=== PATIENT | male | born 1950 | race Caucasian/White ===

== ENCOUNTER 2019-07-02 16:06 | Inpatient (IN) | payer OTHER, MEDICAID ==
[~2019-07-02] VITALS: Ht 170.2 cm; Wt 49.9 kg
--- NOTE | 2019-07-02 19:50 | NUR ---
Opening notes Received patient via gurney. Patient is alert and oriented x1. Patient at first was cooperative, but then began to thrash and attempted to hit staff and self. VSS. Patient legally blind. Patient able to follow simple commands. Oriented patient to room and call light. Patient resting in bed. Safety precautions in place.
--- NOTE | 2019-07-02 20:36 | NUR ---
PAGED PAGED DOCTOR MARKEDIA FOR ORDERS
--- NOTE | 2019-07-02 20:45 | NUR ---
Spoke to Dr. Tamayo Spoke to Dr. Tamayo in regards to admission. Doctor stated he did not want patient to be admitted into the hospital and patient was supposed to go to [facility] to be medically evaluated to be cleared then go to [facility]. merchandise supervisor was informed earlier in the day that patient was going to be a direct admit to the medical surgical unit. Dr. Tamayo refused to have patient admitted and will not come and see the patient, states to just send patient to the ER. Since patient is already on the unit and to be admitted, patient is unable to be transferred without being medically cleared by a doctor. Dr. Tamayo stated "What don't you understand? Patient doesn't have any medical problems. Does he have kidney failure, respiratory failure? No. I don't want the patient admitted, if you want to admit the patient, call Dr. Lam." merchandise supervisor was informed and also spoke to Dr. Tamayo.
--- NOTE | 2019-07-02 21:22 | NUR ---
ADMISSION NOTE Spoke to Caitlyn Patterson and agrees to accept patient under med-surg. Patient admitted with diagnosis of DYSPHAGIA. Orders given by Dr. Lam and MD to see patient in the morning.
[2019-07-02 22:09] LABS: ALBUMIN 2.7 g/dL (3.4-4.8); CALCIUM 8.2 mg/dL (8.4-11.0); CREATININE 0.74 mg/dL (0.55-1.30); POTASSIUM 3.8 mmol/L (3.5-5.1); TOTAL BILIRUBIN 0.2 mg/dL (0.0-1.0)
[2019-07-02 22:13] LABS: BASOPHILS % (AUTO) 0.5 % (0.0-2.0); EOSINOPHILS # (AUTO) 0.1 K/uL (0.0-0.4); LYMPHOCYTES # (AUTO) 1.6 K/uL (1.0-5.5); LYMPHOCYTES % (AUTO) 27.2 % (20.5-51.5); MEAN CORPUSCULAR HEMOGLOBIN 31 pg (27-31); MEAN CORPUSCULAR HGB CONC 34 % (32-36); MEAN CORPUSCULAR VOLUME 90 fL (79.0-98.0); MONOCYTES # (AUTO) 0.5 K/uL (0.0-1.0); MONOCYTES % (AUTO) 7.9 % (1.7-9.3); NEUTROPHILS # (AUTO) 3.6 K/uL (1.8-7.7); NEUTROPHILS % (AUTO) 63.4 % (40.0-70.0); PLATELET COUNT (AUTO) 302 K/uL (130-430); RED BLOOD CELL COUNT(AUTO) 3.88 MIL/uL (4.2-6.2); RED CELL DISTRIBUTION WIDTH 13.9 % (9.0-15.0); WHITE BLOOD COUNT (AUTO) 5.7 K/uL (4.8-10.8)
[2019-07-02 22:26] VITALS: BP_SYST 133
[2019-07-02] MEDS ORDERED: DOCU-144 PO (23:06)
[2019-07-02] MEDS ORDERED: ACET325C6 PO (23:06)
[2019-07-02] MEDS ORDERED: DIVA500T4 PO (23:06)
[2019-07-02] MEDS ORDERED: MELA3TAB64 PO (23:06)
[2019-07-02] MEDS ORDERED: MULT-1100 PO (23:06)
--- NOTE | 2019-07-03 | NUR ---
Attempted IV insertion Patient thrashing and trying to hit saying curse words at nurse. Unable to insert IV at this time due to patient condition. Patient is in no acute distress. Will try at a later time. Call light with the patient. Safety precautions in place.
[2019-07-03 00:13] VITALS: BP_SYST 120
--- NOTE | 2019-07-03 02:00 | NUR ---
Sleeping Patient sleeping, tossing and turning. Hygiene care provided as patient is incontinent. Patient tolerated well. No other needs. Call light with the patient. Safety precautions in place.
--- NOTE | 2019-07-03 04:00 | NUR ---
Hygiene care provided. patient able to turn self. patient irritable. patient thrashes around in bed. no signs of distress noted. safety precautions in place.
--- NOTE | 2019-07-03 05:32 | NUR ---
Nutrition Update Adam Scale 16 noted. Pt admitted for Dysphagia Diet: NPO BMI: 17.2 kg/m2 RD to follow per nutrition care standards.
--- NOTE | 2019-07-03 06:30 | NUR ---
Closing notes Patient resting in bed, patient is easily irritable. No signs of distress noted. Breathing even and unlabored. IV inserted into right forearm 22 gauge. Flushes well with good blood return. All needs met throughout the shift. Call light with the patient. Safety precautions in place. will endorse care to day shift rn.
[2019-07-03] MEDS: D5NS 1,000 ML IV SCH ×2 (06:53→20:38)
--- NOTE | 2019-07-03 07:45 | NUR ---
OPENING NOTE Patient resting in the bed. While connecting the the IVF, patient started yelling and stated "get out of her". When applying the pad to side rails, patient started to hit. Safety measure maintained. Call light within reached. Bed locked in low position, padded side rails up, bed alarm on. Will continue to monitor.
[2019-07-03] MEDS: LORazepam 2 MG/ML VIAL IVP PRN (08:16)
--- NOTE | 2019-07-03 08:23 | NUR ---
ATIVAN GIVEN Patient yelling "get out of here" and said bad words, kicking the nurse. Ativan 2mg IVP given as ordered. Safety measure maintained. Call light within reach. Bed locked in low position, padded side rails up, bed alarm on. Continue to monitor.
--- NOTE | 2019-07-03 08:40 | NUR ---
AM ASSESSMENT CANNOT DONE DUE TO PATIENT AGITATED BEHAVIOR, WILL DO IT LATER WHEN PATIENT CALM.
--- NOTE | 2019-07-03 08:42 | NUR ---
CONSULTATION PAGED/CALLED Reason for Consultation: MOOD DISORDER Person Who was Notified: JAMAICA BAKER FROM OFFICE. Consulting Physician: Hydraulic Auto Jack Mechanic Specialty: PSYC Ordering Physician:
--- NOTE | 2019-07-03 08:53 | NUR ---
CALLED CEFERINO, SPEECH THERAPIST, RE: SWALLOWING EVAL. LEFT A VOICE MESSAGE.
[2019-07-03] MEDS: DOCUSATE SODIUM 100 MG CAPSULE PO SCH ×2 (09:00→20:38)
[2019-07-03] MEDS: DIVALPROEX SODIUM 500 MG TABLET( DEPAKOTE) PO SCH ×2 (09:00→20:38)
[2019-07-03] MEDS ORDERED: DIVALPROEX SODIUM 250 MG TABLET(DEPAKOTE) PO SCH (09:00)
--- NOTE | 2019-07-03 09:15 | NUR ---
SEEN AND EXAMINED BY DR. WHITE [facility] WITH ORDER RECEIVED.
--- NOTE | 2019-07-03 10:50 | NUR ---
SLEEPING Patient sleeping in the bed. No acute distress. IV intact, IVF infusing well. Safety measure maintained. Call light within reached. Bed locked in low position, padded side rails up, bed alarm on. Continue to monitor.
--- NOTE | 2019-07-03 11:45 | NUR ---
PATIENT WOKE UP AND CALM AND COOPERATIVE, CLEANED PATIENT WITH ROLL SLICING MACHINE TENDER TOGETHER. ASSESSMENT DONE AT THIS TIME.
[2019-07-03 12:00] VITALS: BP_SYST 136
--- NOTE | 2019-07-03 12:16 | NUR ---
Dietitian Recommendations *Recommend continuing NPO per MD orders. *Recommend swallow eval when appropriate. Please see Nutritional Assessment for details. GERARDO, RD
--- NOTE | 2019-07-03 12:25 | NUR ---
IV RE-INSERTION: Noted the IV out. Restarted on RFA, gauge 22 with good blood return, flushed with NS 5ml. Successful after two attempts. Resumed current IVF of D5 NS at 70ml/hr. Will observe for any signs of infiltration.
--- NOTE | 2019-07-03 13:30 | NUR ---
RIGHT IJ CATHETER Checked patient no right IJ catheter access noted confirmed with charge nurse, Darlin. Another chest x-ray ordered to confirm the pervious reading.
--- NOTE | 2019-07-03 15:00 | NUR ---
ROUND patient resting in the bed. No acute distress. IV intact, IVF infusing well. Safety measure maintained. Call light within reached. Bed locked in low position, padded side rails up, bed alarm on. Continue to monitor.
--- NOTE | 2019-07-03 15:28 | NUR ---
CALLED [facility] REGARDING THE RIGHT IJ CATHETER AND FLU VACCINE Spoke to Ana Newman LVN regarding the right IJ catheter, per December since the patient admitted to the facility none of central line inserted that she knows. Per December patient did not received flu vaccine this year.
[2019-07-03] MEDS ORDERED: FLU VACC TS2019(65UP)/MF59C/PF 45 MCG/0.5 ML SYRINGE I.M. PRN (16:00)
--- NOTE | 2019-07-03 16:09 | NUR ---
S.T. SWALLOW EVAL SWALLOW EVAL COMPLETED. PT PRESENTS W/ FUNCTIONAL OROPHARYNGEAL SWALLOW FOR PUREE AND THIN/THICK LIQUIDS. NO S/S OF ASPIRATION. REC: PUREE DIET. THIN LIQUIDS OK. NURSE VIRGIL NOTIFIED. G8996 CJ G8997 CJ G8998 CJ NOMS LEVEL 5
[2019-07-03 16:12] VITALS: BP_SYST 114
--- NOTE | 2019-07-03 16:16 | NUR ---
CALLED AND RECEIVED THE CALL BACK FROM DR. WHITE, JHUJHAR Reported to Dr. White, no right IJ central line seen on the patient. Called to [facility] to confirm with the nurse and said that none of she know patient has central line since admission. Dr. White stated "don't do any thing now, I will take care". Also informed to Dr. White for swallow eval result recommended pureed diet with thin liquid. Dr. White agreed that with order. Told Dr. White had hard time to collect the urine sample. Dr. White stated " don't worry about that, may get it tonight or tomorrow when resume the medication and the patient cooperate, may insert straight cath to obtain the urine sample".
--- NOTE | 2019-07-03 16:33 | NUR ---
DC Plan Assessment: FOREST ECOLOGY PROFESSOR attempted to meet with Pt. He presented as confused, unable to provide any meaningful information at this time, mumbled speech, was agitated earlier, he was given Ativan. He has a hx of IP at [facility]. [facility] . Consulted with RN Pt is pending a Psych MD consult and swallow eval. Tenative plan is to transfer to [facility] for stabilization, pending Psych consult and swallow eval recommendation. DC/CM/SS will remain available as needed
--- NOTE | 2019-07-03 18:50 | NUR ---
CLOSING NOTE Patient resting in the bed and calm at this time. No acute distress noted. Skin warm and dry to touch. IV intact to RFA, no redness, no swelling, no drainage, IVF infusing well. All needs met. No seizure activity noted. Safety measure maintained. Call light within reached. Bed locked in low position, padded side rails up, bed alarm on. Will endorse to night nurse.
--- NOTE | 2019-07-03 19:45 | NUR ---
OPENING NOTES Pt and endorsement received from day shift nurse. Pt is awake, confused and lying in bed. Pt on IVF with D5NS at 70ml/hr and infusing well on right forearm G22. Incontinence care rendered with CHENCHO Perez, pt had a bowel movement. Pt is cooperating at this time and not agitated. No signs of acute distress or SOB noted. Encouraged to use call light when needed. Safety precautions in place with 3 side rails up, wheels locked, bed alarm on and in lowest level. Call light with pt. Will continue to monitor.
[2019-07-03 20:33] VITALS: BP_SYST 117
[2019-07-03] MEDS: MELATONIN 3 MG TABLET PO SCH (20:39)
--- NOTE | 2019-07-03 20:50 | NUR ---
MED PASS All oral due meds crushed and given with apple sauce, pt tolerated well. Aspiration precaution maintained with head elevated at 50 degrees. No complains of pain and no signs of acute distress noted. IVF infusing well. Safety and seizure precautions in place and call light with pt. Will continue to monitor.
[2019-07-03 23:22] VITALS: BP_SYST 112
--- NOTE | 2019-07-03 23:35 | NUR ---
ROUNDS Pt is resting in bed with both eyes closed, with visible chest rise and fall with non-labored breathing noted. No signs of acute distress noted. IVF infusing well. Safety precautions in place and call light with pt. Will continue to monitor.
--- NOTE | 2019-07-04 02:03 | NUR ---
ROUNDS Pt is resting in bed with both eyes closed, with visible chest rise and fall with non-labored breathing noted. No signs of acute distress noted. No needs at this time. IVF infusing well. Safety precautions in place and call light with pt. Will continue to monitor.
--- NOTE | 2019-07-04 04:31 | NUR ---
ROUNDS Pt tried to get out off the bed. Pt's bed and gown was wet, incontinence care rendered with CHENCHO Perez. New gown and sheets provided. No complains of pain and no signs of acute distress noted. IVF infusing well. Safety precautions in place and call light with pt. Will continue to monitor.
[2019-07-04] MEDS: D5NS 1,000 ML IV SCH ×2 (04:36→11:12)
--- NOTE | 2019-07-04 06:39 | NUR ---
CLOSING NOTES Pt is resting in bed with both eyes closed, with visible chest rise and fall with non-labored breathing noted. IVF patent and infusing well. No complains of pain or discomfort at this time. No signs of acute distress or SOB noted. All needs attended throughout the shift. Seizure pads in place and safety precautions maintained with 3 side rails up, wheels locked, bed alarm on and in lowest level. Call light with pt. Will endorse to day shift nurse.
--- NOTE | 2019-07-04 07:30 | NUR ---
Initial notes: Patient sleeping on bed. Stable. I.V. access patent. Call light within reach. Safety and seizure precaution in placed. Bed rail up x3. Bed brakes and bed alarm on. Report received from MARY Kim. at bedside.
[2019-07-04 07:59] VITALS: BP_SYST 137
[2019-07-04] MEDS: DOCUSATE SODIUM 100 MG CAPSULE PO SCH ×2 (09:00→21:54)
[2019-07-04] MEDS: DIVALPROEX SODIUM 500 MG TABLET( DEPAKOTE) PO SCH ×2 (09:00→21:54)
--- NOTE | 2019-07-04 09:04 | NUR ---
rounds: patient resting. no distress noted. able to take medication thru oral. compliant.
[2019-07-04] MEDS: LORazepam 2 MG/ML VIAL IVP PRN (09:30)
[2019-07-04 12:09] LABS: BILIRUBIN,URINE NEGATIVE (NEGATIVE); CLARITY/URINE HAZY (CLEAR); COLOR,URINE YELLOW (YELLOW); GLUCOSE,URINE NEGATIVE (NEGATIVE); KETONES,URINE NEGATIVE (NEGATIVE); LEUKOCYTE ESTERASE ,URINE 3+ (NEGATIVE); NITRITE, URINE POSITIVE (NEGATIVE); PH,URINE 7.5 (5.0-8.0); PROTEIN URINE NEGATIVE (NEGATIVE); UROBILINOGEN,URINE 0.2 (0.2-1.0)
[2019-07-04 12:10] LABS: BLOOD, URINE TRACE (NEGATIVE)
[2019-07-04 12:20] VITALS: BP_SYST 133
[2019-07-04 12:31] LABS: WBC,URINE 50-80 /HPF (0-3)
[2019-07-04 12:32] LABS: BACTERIA,URINE MANY /HPF (None Seen)
--- NOTE | 2019-07-04 12:45 | NUR ---
UA result: Informed Dr Lam of UA result with new order for antibiotic.
[2019-07-04] MEDS: cefTRIAXone 1 GM in D5W 50 ML IV SCH (13:44)
--- NOTE | 2019-07-04 15:20 | NUR ---
rounds: patient wants to get up and restless. Encouraged to get back to back. Patient complied.
[2019-07-04 16:15] VITALS: BP_SYST 148
--- NOTE | 2019-07-04 16:55 | NUR ---
rounds: Patient resting on bed. No distress noted.
--- NOTE | 2019-07-04 18:40 | NUR ---
Closing notes: Patient on bed resting. Stable. Needs attended. Call light within reach. Safety measures in placed. Seizure precaution in placed. Report will be given to security shift supervisor.
--- NOTE | 2019-07-04 19:30 | NUR ---
INITIAL : PATIENT IN BED ,WITH BLANKET COVER OVER HIS HEAD, IVF INFUSING AT 70ML/HR.SKIN WARM AND DRY TO TOUCH. WILL MONITOR CLOSELY.
[2019-07-04 21:00] VITALS: BP_SYST 116
--- NOTE | 2019-07-04 21:35 | NUR ---
MEDS ADMIN: PATIENT UNCOVER HIMSELF WHEN CALLED HIS NAME. KNOWS NAME AND PLACE ONLY. FORGETFUL OF TIME. INFORMED ITS MEDICATION TIME.VERBALIZED OKAY AND SITS UP IN BED. CRUSHED DUE MEDS ,GAVE WITH APPLE SAUCE WITHOUT ANY PROBLEM. IV SITE CLEAR ,WITH SLIGHT REDNESS SURROUNDING AREAS. WRAPPED WITH SANDRA GAUGE FOR SECURITY. WILL MONITOR CLOSELY.
[2019-07-04] MEDS: MELATONIN 3 MG TABLET PO SCH (21:53)
[2019-07-04] MEDS: MIRTAZAPINE 15 MG TABLET PO SCH (21:53)
--- NOTE | 2019-07-04 23:00 | NUR ---
ROUNDS: PATIENT SLEEPING WITH BLANKETS OVER HEAD. SELF TURN.
[2019-07-04 23:28] VITALS: BP_SYST 135
--- NOTE | 2019-07-05 01:35 | NUR ---
ROUNDS: PATIENT RESTING QUITELY , BREATHING PATTERN SYMMETRICAL. CALL LIGHT WITHIN REACH.
[2019-07-05] MEDS: D5NS 1,000 ML IV SCH (02:38)
--- NOTE | 2019-07-05 03:00 | NUR ---
CONTINUE TO SLEEP. NO DISTRESS.IVF INFUSING WELL.
--- NOTE | 2019-07-05 06:00 | NUR ---
CONDOM CATH REMOVED, SKIN INTACT. WAS COMBATIVE . THREE STAFF HELP.
--- NOTE | 2019-07-05 07:05 | NUR ---
CLOSING: ALL NEEDS ATTENDED. NO ACUTE CARDIOPULMONARY DISTRESS. GETS AGITATED EASILY WITH ACTIVITIES. IVF INFUSING WELL.ENDORSED CARE TO AM RN FOR FURTHER CARE.
[2019-07-05 08:00] VITALS: BP_SYST 127
--- NOTE | 2019-07-05 08:00 | NUR ---
PATIENT IS RESTLESS, A/OX1. V/S STABLE. CHEST RISING AND FALLING EVENLY. IV ON RIGHT FA, #22. CALL LIGHT IN PLACE, BED LOCKED WITH ALARM ON AT THE LOWEST POSITION, WILL CONTINUE TO MONITOR.
[2019-07-05] MEDS: DOCUSATE SODIUM 100 MG CAPSULE PO SCH ×2 (08:54→21:39)
[2019-07-05] MEDS: DIVALPROEX SODIUM 500 MG TABLET( DEPAKOTE) PO SCH ×2 (08:54→21:39)
[2019-07-05] MEDS: cefTRIAXone 1 GM in D5W 50 ML IV SCH (08:55)
--- NOTE | 2019-07-05 09:10 | NUR ---
PATIENT IS ABLE TO HAVE BREAKFAST AND MEDS WITH TOTAL ASSISTANCE. NO SIGNS OF ASPIRATION NOTED.
--- NOTE | 2019-07-05 11:12 | NUR ---
PATIENT IS TURNED AND REPOSITIONED FOR COMFORT. TOLERATED WITHOUT DISTRESS.
[2019-07-05 11:29] VITALS: BP_SYST 119
--- NOTE | 2019-07-05 13:27 | NUR ---
PATIENT IS FED LUNCH. NO SIGNS OF ASPIRATIONS NOTED.
[2019-07-05 15:23] VITALS: BP_SYST 107
--- NOTE | 2019-07-05 15:37 | NUR ---
PATIENT IS TURNED AND REPOSITIONED FOR COMFORT.
--- NOTE | 2019-07-05 18:05 | NUR ---
PATIENT IS FED DINNER. TOLERATED WITHOUT DISTRESS.
[2019-07-05 19:00] VITALS: BP_SYST 124
[2019-07-05 20:00] VITALS: BP_SYST 124
--- NOTE | 2019-07-05 21:30 | NUR ---
PATIENT MEDICATION CRUSHED AND GIVEN WITH MANOLO .TOLERATED WELL.
[2019-07-05] MEDS: MELATONIN 3 MG TABLET PO SCH (21:39)
[2019-07-05] MEDS: MIRTAZAPINE 15 MG TABLET PO SCH (21:40)
[2019-07-06] MEDS: D5NS 1,000 ML IV SCH ×2 (00:43→10:30)
[2019-07-06 03:32] VITALS: BP_SYST 132
--- NOTE | 2019-07-06 06:51 | NUR ---
NO SIGNS OF SIEZURES .SLEPT WELL
[2019-07-06 07:48] VITALS: BP_SYST 126
--- NOTE | 2019-07-06 08:00 | NUR ---
ASSUMPTION OF CARE; RECEIVED PT A/A/OX2, DX: RISK FOR ASPIRATION, R/T DYSPHAGIA, VSS, NO S/S OF DISTRESS, BREATH SOUNDS ARE CLEAR, BREATHING UNLABORED, AFEBRILE, NO C/O PAIN OR DISCOMFORT, IV SITE INTACT, PATENT, NO REDNESS OR SWELLING, ORIENTED TO UNIT, CALL LIGHT PLACED WITHIN REACH, ROOM CLOSE TO NURSES STATION, SIDE RAILS PADDED UP X 2, WILL MONITOR FOR POSSIBLE SZ, FALL AND ASPIRATION RISK.
--- NOTE | 2019-07-06 10:00 | NUR ---
MASTER TAX ADVISOR: MORNING MEDS GIVEN, PER ORDERED BY Jaspreet, TOLERATED WELL, WILL CON'T WITH POC.
[2019-07-06] MEDS: DOCUSATE SODIUM 100 MG CAPSULE PO SCH ×2 (10:26→20:35)
[2019-07-06] MEDS: DIVALPROEX SODIUM 500 MG TABLET( DEPAKOTE) PO SCH ×3 (10:26→21:02)
[2019-07-06] MEDS: cefTRIAXone 1 GM in D5W 50 ML IV SCH (10:30)
[2019-07-06 11:32] VITALS: BP_SYST 116
--- NOTE | 2019-07-06 12:00 | NUR ---
NURSES NOTES: PT PT RESTING IN POSITION OF COMFORT, NO CHANGES NOTED AT THIS TIME, NO SZ ACTIVITY NOTED, FALL PRECAUTIONS IMPLEMENTED, WILL CON'T TO MONITOR AND ASSESS.
--- NOTE | 2019-07-06 12:30 | NUR ---
VISIT: AT BEDSIDE FOR ASSESSMENT OF PT, WILL CON'T WITH POC.
--- NOTE | 2019-07-06 12:41 | NUR ---
Nutrition F/U RD reviewed pt's current EMR record including diet Hx, physician notes, nursing notes, pertinent labs/meds/procedures, care trends, and care activity. Current Diet Order: Pureed x3 days Subjective Info: Pt seen resting in bed, visually thin for ht, c/w anthropometrics. Pt had a swallow eval 07/03/19; ST rec for pureed diet. Pt reported good appetite -- PO intake records indicate that pt is eating well. Ensure Enlive seen opened w/ straw -- RD offered to pt, and pt accepted and started drinking more of ONS. RD encouraged pt to continue to eat/drink well for optimal nutrition. Per physician notes, plans to D/C to geropsych once urine culture is resulted. Current % PO 87% average x7 meals Estimated Energy Expenditure (kcals/day) 3248-9630 kcal/day (25-30 kcal/kg IBW for gradual weight gain promotion) Estimated Protein Required (g/day) 67-87 gm/day (1-1.3 gm/kg IBW for Geriatric maintenance) Estimated Fluid Required (l/day) 1.7 L/day (25 ml/kg IBW for geriatric maintenance) Problem/Etiology/Signs/Symptoms Underweight r/t poor nutrient intake 2/2 altered mental status AEB SNF's report of poor PO intake FITNESS TRAINER, 74% IBW and psychosis. *ongoing Expected Outcomes/Goals Monitor appetite and PO intake w/ goal of pt meeting at least 75% of estimated nutritional needs, labs trending WNL, normal GI function, skin integrity/wt maintenance. Dietitian Recommendations *Recommend continuing pureed diet (ONS Ensure Enlive TID comes standard w/ this diet; provides 1050 kcal/day, 60 gm protein/day) Follow Up Moderate Risk: F/U in 3-5 days
--- NOTE | 2019-07-06 12:45 | NUR ---
Dietitian Recommendations *Recommend continuing pureed diet (ONS Ensure Enlive TID comes standard w/ this diet; provides 1050 kcal/day, 60 gm protein/day) LP, RD Please refer to Nutrition F/U for details.
--- NOTE | 2019-07-06 15:00 | NUR ---
NURSES NOTES: PT HAS NO SIGNIFICANT CHANGES NOTED, WAS CLEANED AND REPOSITIONED, NO SZ ACTIVITY NOTED, WILL CON'T TO MONITOR AND ASSESS.
[2019-07-06 15:13] VITALS: BP_SYST 130
--- NOTE | 2019-07-06 18:00 | NUR ---
END OF SHIFT: PT IS STABLE, NO S/S OF DISTRESS, RESTING IN POSITION OF COMFORT, NEEDS MET, CALL LIGHT PLACED WITHIN REACH, WILL CON'T TO MONITOR, WILL ENDORSE TO SURGICAL PRODUCT SALES CONSULTANT NURSE.
[2019-07-06 19:00] VITALS: BP_SYST 119
[2019-07-06 20:00] VITALS: BP_SYST 119
[2019-07-06] MEDS: MIRTAZAPINE 15 MG TABLET PO SCH ×2 (20:35→21:02)
[2019-07-06] MEDS: MELATONIN 3 MG TABLET PO SCH (20:54)
[2019-07-07 01:20] VITALS: BP_SYST 96
[2019-07-07] MEDS: D5NS 1,000 ML IV SCH ×2 (01:42→17:13)
--- NOTE | 2019-07-07 05:57 | NUR ---
SLEPT WEEL THE WHOLE NIGHT/ ALERT BUT WITH PERIODS OF CONFUSION.O RECORED BM SINCE THE 4TH. WILL FOLLOW UP IN THE AM SHIFT.WITH THE SAME IVF ON.
--- NOTE | 2019-07-07 07:40 | NUR ---
opening note patient is resting in bed, assessment completed, educated adult secondary education instructor light system and plan of care, patient nodded head no signs of distress, no other needs addressed at this time, IV fluids running, fall/safety and seizure precautions in place, patient took gown off and refused for me to put it back on at this time.
[2019-07-07 08:00] VITALS: BP_SYST 113
[2019-07-07] MEDS: DIVALPROEX SODIUM 500 MG TABLET( DEPAKOTE) PO SCH ×2 (08:54→20:46)
[2019-07-07] MEDS: DOCUSATE SODIUM 100 MG CAPSULE PO SCH ×2 (08:54→20:46)
[2019-07-07] MEDS: cefTRIAXone 1 GM in D5W 50 ML IV SCH (08:54)
--- NOTE | 2019-07-07 09:30 | NUR ---
rounds patient is resting in bed, eyes closed breathing easy and nonlabored, IV fluids running, no needs addressed at this time, fall/safety and seizure precautions in place. Addendum: 07/07/19 at 1038 by Lorin Farooq RN Dr Abdulkadir burns for patient to be transferred back to [facility].
[2019-07-07] MEDS ORDERED: DIVA500T2 PO (10:02)
[2019-07-07] MEDS ORDERED: REM15 PO (10:02)
[2019-07-07 11:29] VITALS: BP_SYST 107
--- NOTE | 2019-07-07 11:37 | NUR ---
rounds patient is resting in bed, no signs of distress, no needs addressed at this time, fall/safety and seizure precautions in place, IV fluids running.
--- NOTE | 2019-07-07 12:50 | NUR ---
Discharge Planning: [facility]f [phone] p [phone]) DCP to follow up.
--- NOTE | 2019-07-07 13:30 | NUR ---
Dc Planning: Per Jess at [facility], can not take pt today dt no bed assignment yet. There will be bed for the pt tomorrow. -- eva Benites to f/u in am.
--- NOTE | 2019-07-07 13:40 | NUR ---
rounds patient is resting in bed, no signs of distress, no needs addressed at this time, fall/safety and seizure precautions in place, IV fluids running.
--- NOTE | 2019-07-07 15:05 | NUR ---
rounds patient is tossing and turning in bed, no signs of distress, no needs addressed at this time, fall/safety and seizure precautions in place, IV fluids running.
[2019-07-07 15:32] VITALS: BP_SYST 104
--- NOTE | 2019-07-07 17:28 | NUR ---
patient tossing and turning in bed patient is tossing and turning in bed, no signs of distress, no needs addressed at this time, fall/safety and seizure precautions in place, IV fluids running.
--- NOTE | 2019-07-07 18:46 | NUR ---
closing note patient is resting in bed, being fed by the INFANTRY UNIT LEADER, no signs of distress, no needs addressed at this time, fall/safety and seizure precautions in place, IV fluids running, will endorse report to [facility] shift nurse that [facility] will accept patient back but they will not have a bed available until tomorrow.
[2019-07-07 19:00] VITALS: BP_SYST 114
[2019-07-07 20:00] VITALS: BP_SYST 114
[2019-07-07] MEDS: MELATONIN 3 MG TABLET PO SCH (20:46)
[2019-07-07] MEDS: MIRTAZAPINE 15 MG TABLET PO SCH (20:46)
[2019-07-08 01:12] VITALS: BP_SYST 130
--- NOTE | 2019-07-08 07:28 | NUR ---
Opening Note received bedside SBAR report from shift production supervisor RN, patient resting in bed, respirations even and unlabored on room air, no acute distress noted, room close to nurses station, educated patient on use of call light and asked to call for assistance, call light in reach, bed in low and locked position, bed alarm on.
[2019-07-08 08:00] VITALS: BP_SYST 114
[2019-07-08] MEDS: DIVALPROEX SODIUM 500 MG TABLET( DEPAKOTE) PO SCH (08:15)
[2019-07-08] MEDS: DOCUSATE SODIUM 100 MG CAPSULE PO SCH ×2 (08:15→08:21)
[2019-07-08] MEDS: D5NS 1,000 ML IV SCH (08:17)
[2019-07-08] MEDS: cefTRIAXone 1 GM in D5W 50 ML IV SCH (08:17)
--- NOTE | 2019-07-08 08:39 | NUR ---
Discharge Planning: [facility] [phone] p [phone]) SRI with Matt for admission.
--- NOTE | 2019-07-08 09:09 | NUR ---
Physician Rounds Dr. Panchal at bedside examining patient.
--- NOTE | 2019-07-08 10:57 | NUR ---
RN Rounds patient resting in bed, respirations even and unlabored on room air, patient denies any pain, no acute distress noted.
[2019-07-08 11:24] VITALS: BP_SYST 119
--- NOTE | 2019-07-08 11:58 | NUR ---
Discharge Planning: NDP arranged transportation with [facility] ([phone])5:00pm P/U to [facility] (f [phone] p [phone]) room is being set up by nurse station, but jocelynn levymaureen send pt after 5:00pm per Zulema. Nurse and CM aware. Addendum: 07/08/19 at 1414 by Delmis Arechiga DP [facility] (f [phone] p [phone]) per Zulema RM 111V
--- NOTE | 2019-07-08 13:21 | NUR ---
RN Rounds patient resting in bed, respirations even and unlabored on room air, patient denies any pain, no acute distress noted.
[2019-07-08 14:59] VITALS: BP_SYST 120
--- NOTE | 2019-07-08 15:10 | NUR ---
Called Conservator called patients conservator Carole Ewing, informed her of transfer of patient back to [facility] today at 1700, understanding verbalized.
[2019-07-08 15:27] VITALS: BP_SYST 127
--- NOTE | 2019-07-08 15:50 | NUR ---
RN Rounds patient resting in bed, respirations even and unlabored, patient denies any pain, no acute distress noted, no seizure activity noted. Addendum: 07/08/19 at 1634 by Yuridia Carbajal RN informed patient of transfer back to [facility] today at 1700, patient agreeable and verbalized understanding.
--- NOTE | 2019-07-08 16:40 | NUR ---
Called Report called [facility] and gave SBAR report to Vida, informed her of pickup time of 1700, informed her that patient needs to follow up with neurology, understanding verbalized.
--- NOTE | 2019-07-08 17:01 | NUR ---
[facility], provided patient with discharge packet and instructions, IV catheter removed, catheter intact, no bleeding, hospital ID band removed, plain ID band in place, all belongings sent with patient, no acute distress noted, patient denies any pain, report given to [facility] ambulance, patient transferred via gurney by [facility] ambulance.
== END 2019-07-08 17:01 | DRG 690 ==
LOC: SMU 20:05
PROVIDERS: ADMIT General Practice; ATTEND General Practice
DX: N39.0 Urinary tract infection, site not specified (principal); F23 Brief psychotic disorder; E44.0 Moderate protein-calorie malnutrition; Z68.1 Body mass index [BMI] 19.9 or less, adult; R13.10 Dysphagia, unspecified; G40.909 Epilepsy, unspecified, not intractable, without status epilepticus; E78.5 Hyperlipidemia, unspecified; F03.90 Unspecified dementia, unspecified severity, without behavioral disturbance, psychotic disturbance, mood disturbance, and anxiety; H54.8 Legal blindness, as defined in USA; J44.9 Chronic obstructive pulmonary disease, unspecified; M19.90 Unspecified osteoarthritis, unspecified site; Z98.2 Presence of cerebrospinal fluid drainage device; Z79.899 Other long term (current) drug therapy
CPT/HCPCS: 36415; 70450-TC; 70490; 71045; 71250-TC; 80053; 80164-TC; 81000-TC; 85025; 87081; 87086; 87186-TC; 92610-GN; J0696; J2060; J7042; J7060